=== PATIENT | male | born 1950 | race American Indian/Alaskan Native ===

== ENCOUNTER 2020-01-10 15:19 | Emergency (ER) | payer BC ==
[2020-01-10 16:43] VITALS: BP 159/96
--- NOTE | 2020-01-10 17:06 | XRay Report ---
RIGHT WRIST 3 VIEWS INDICATION / CLINICAL INFORMATION: Right wrist/hand injury. COMPARISON: None available. FINDINGS: On the lateral view, there appears to be an avulsion fracture. Exact site of origin is not certain, b ut this is in the region of the capitate. Signer Name: Juan Moffett MD Signed: 01/10/2020 5:02 PM Workstation Name: [id number]
[2020-01-10] MEDS ORDERED: IBUPROFEN 600 MG TAB PO ONE (18:31)
--- NOTE | 2020-01-10 18:33 | Emergency Department Report ---
ED Upper Extremity Inj HPI - General Chief Complaint: Extremity Injury, Upper Stated Complaint: RT HAND INJURY Source: patient Mode of arrival: Ambulatory Limitations: No Limitations - History of Present Illness Initial Comments: 69-year-old -[place] male reports that he had fallen at work and comes in for right hand and wrist injury. Patient denies any past medical history reports his pains 8 out of 10. Pain is worse when he supinates and pronates. Complaint: Injury to:: right, wrist -: This afternoon Other Extremity Injury: Wrist: Right Handedness: right Severity scale (0 -10): 8 Worsens With: movement of extremity Context: fall Associated Symptoms: denies other symptoms - Related Data Previous Rx's Medication Instructions Recorded Last Taken Type Ibuprofen [Motrin 600 MG tab] 600 mg PO Q8H PRN #30 tablet 01/10/20 Unknown Rx Allergies Allergy/AdvReac Type Severity Reaction Status Date / Time coconut Allergy Hives Verified 01/10/20 16:42 ED Review of Systems ROS: Stated complaint: RT HAND INJURY Other details as noted in HPI Comment: All other systems reviewed and negative ED Past Medical Hx - Past Medical History Previous Medical History?: No - Surgical History Past Surgical History?: Yes Hx Appendectomy: Yes - Social History Smoking Status: Never Smoker Substance Use Type: None - Medications Home Medications: Home Medications Medication Instructions Recorded Confirmed Last Taken Type Ibuprofen [Motrin 600 MG tab] 600 mg PO Q8H PRN #30 tablet 01/10/20 Unknown Rx ED Physical Exam - General Limitations: No Limitations General appearance: alert, in no apparent distress - Head Head exam: Present: atraumatic, normocephalic - ENT ENT exam: Present: mucous membranes moist - Expanded Upper Extremity Exam Right Shoulder Exam: Present: normal inspection Upper Arm exam: Present: normal inspection Elbow exam: Present: normal inspection Forearm Wrist exam: Present: normal inspection, full ROM Hand Wrist exam: Present: normal inspection, full ROM, tenderness, swelling Vascular: Present: normal capillary refill - Back Exam Back exam: Present: normal inspection, full ROM - Neurological Exam Neurological exam: Present: alert, oriented X3, normal gait - Psychiatric Psychiatric exam: Present: normal affect, normal mood - Skin Skin exam: Present: warm, dry, intact, normal color. Absent: rash ED Course Vital Signs 01/10/20 16:40 Temperature 98.0 F Pulse Rate 73 Respiratory 18 Rate Blood Pressure 159/96 O2 Sat by Pulse 97 Oximetry ED Medical Decision Making - Radiology Data Radiology results: report reviewed interpreted by me: [facility] [address] [place] [address] XRay Report Signed Patient: PADMINI JUAREZ MR#: [id number] : 1950 Acct:[id number] Age/Sex: 69 / M ADM Date: 01/10/20 Loc: ED Attending Dr: Ordering Physician: TIMOTHY WYLIE MD Date of Service: 01/10/20 Procedure(s): XR wrist 3+V RT Accession Number(s): [id number] cc: ED MD INESSA Fluoro Time In Minutes: RIGHT WRIST 3 VIEWS INDICATION / CLINICAL INFORMATION: Right wrist/hand injury. COMPARISON: None available. FINDINGS: On the lateral view, there appears to be an avulsion fracture. Exact site of origin is not certain, but this is in the region of the capitate. Signer Name: Juan Moffett MD Signed: 01/10/2020 5:02 PM Workstation Name: [id number] Transcribed By: TM Dictated By: Juan Moffett MD Electronically Authenticated By: Juan Moffett MD Signed Date/Time: 01/10/201701 DD/ 99 TD/TT: - Medical Decision Making 69-year-old -[place] male reports that he had fallen at work and comes in for right hand and wrist injury. Patient denies any past medical history reports his pains 8 out of 10. Pain is worse when he supinates and pronates. Patient has an avulsion fracture on the lateral right wrist. Patient will be placed in a wrist immobilizer ibuprofen ice and a referral to orthopedic provider. Critical care attestation.: If time is entered above; I have spent that time in minutes in the direct care of this critically ill patient, excluding procedure time. ED Disposition Clinical Impression: Wrist fracture, right Qualifiers: Encounter type: initial encounter Fracture type: closed Qualified Code(s): S62.101A - Fracture of unspecified carpal bone, right wrist, initial encounter for closed fracture Disposition: DC-01 TO HOME OR SELFCARE Is pt being admited?: No Does the pt Need Aspirin: No Condition: Stable Instructions: Wrist Fracture in Adults (ED) Additional Instructions: Please follow-up with orthopedics within a week to have a reevaluation and a permanent cast on your right wrist as it is fractured. You can take Tylenol or ibuprofen for pain management. Be sure to increase your water intake while taking medication. Elevate wrist at night on a pillow and you can place an ice pack to help with the swelling and pain. Only keep the ice for 20 minutes and then off for 2 hours. Prescriptions: Ibuprofen [Motrin 600 MG tab] 600 mg PO Q8H PRN #30 tablet PRN Reason: Pain , Severe (7-10) Referrals: [facility] [Provider Group] - 3-5 Days DIANE GRANADOS MD [Staff Physician] - 3-5 Days Forms: Work/School Release Form(ED)
== END 2020-01-10 19:41 | disposition home or self-care (01) ==
LOC: ED 15:19
DX: S62.101A Fracture of unspecified carpal bone, right wrist, initial encounter for closed fracture (principal); Z90.49 Acquired absence of other specified parts of digestive tract; W18.39XA Other fall on same level, initial encounter; Y93.89 Activity, other specified; Y92.89 Other specified places as the place of occurrence of the external cause; Y99.8 Other external cause status

== ENCOUNTER 2021-11-04 07:10 | Outpatient (CLI) | payer MEDICARE ==
--- NOTE | 2021-11-04 09:16 | Ultrasound Report ---
ULTRASOUND ABDOMEN, COMPLETE INDICATION: K74.60 CIRRHOSIS OF LIVER. COMPARISON: No relevant prior imaging study available. FINDINGS: Pancreas: No significant abnormality. Abdominal Aorta: Normal size. IVC: No significant abnormality. Liver: The liver measures 13.4 cm in length. No significant abnormality. Normal hepatopedal blood fl ow in the main portal vein. Gallbladder: No significant abnormality. Bile ducts: No significant abnormality. Common bile duct measures 2 mm. Kidneys: Right: 10.9 cm in length. No significant abnormality. Left: 10 cm in length. No signific ant abnormality. Spleen: No significant abnormality. Free fluid: None. Additional Findings: None. IMPRESSION: 1. No sonographic abnormality of the abdomen. Signer Name: Jaiorn Vu MD Signed: 11/04/2021 9:11 AM Workstation Name: [id number]
--- NOTE | 2021-11-04 10:20 | Vascular Lab Report ---
DUPLEX DOPPLER LOWER EXTREMITY ARTERIAL, BILATERAL INDICATION / CLINICAL INFORMATION: I73.9 PERIPHERAL VASCULAR DISEASE. TECHNIQUE: Arterial duplex examination of both lower extremities performed using B-mode, color flow a nd spectral Doppler assessment. FINDINGS: RIGHT: Common Femoral Artery: PSV 101 cm/sec. Triphasic waveform. Proximal SFA: PSV 119 cm/sec. Biphasic waveform. Mid SFA: PSV 91 cm/sec. Biphasic waveform. Distal SFA: PSV 64 cm/sec. Biphasic waveform. Popliteal artery: PSV 80 cm/sec. Biphasic waveform. Posterior tibial artery: PSV 57 cm/sec. Biphasic waveform. Dorsalis Pedis Artery: PSV 67 cm/sec. Biphasic waveform. LEFT: Common Femoral Artery: PSV 93 cm/sec. Triphasic waveform. Proximal SFA: PSV 106 cm/sec. Triphasic waveform. Mid SFA: PSV 82 cm/sec. Biphasic waveform. Distal SFA: PSV 80 cm/sec. Biphasic waveform. Popliteal artery: PSV 72 cm/sec. Biphasic waveform. Posterior tibial artery: PSV 49 cm/sec. Biphasic waveform. Dorsalis Pedis Artery: PSV 41 cm/sec. Triphasic waveform. IMPRESSION: 1. No hemodynamically significant lower extremity peripheral artery disease. There is diffuse minimal plaque noted bilaterally without discrete significant stenosis identified. Ankle-Brachial Index (KEVIN): - Calcified arteries > 1.4 - Normal = 0.9-1.4 - Mild PAD = 0.7-0.89 - Moderate PAD = 0.51-0.69 - Severe PAD < 0.5 Doppler Waveform: - Triphasic is normal. - Biphasic is abnormal if clear transition from triphasic signal along vascular tree. - Monophasic is abnormal. Signer Name: Yash Glynn MD Signed: 11/04/2021 10:16 AM Workstation Name: [id number]
== END 2021-11-04 07:11 | disposition home or self-care (01) ==
LOC: US 07:10
PROVIDERS: ATTEND Nurse Practitioner Family
DX: I70.203 Unspecified atherosclerosis of native arteries of extremities, bilateral legs (principal); K74.60 Unspecified cirrhosis of liver
CPT/HCPCS: 76700; 93925